=== PATIENT | male | born 1945 | race Two or more races ===

== ENCOUNTER 2019-07-27 13:58 | Emergency (ER) | payer OTHER ==
[~2019-07-27] VITALS: Ht 160 cm; Wt 93.4 kg
--- NOTE | 2019-07-27 14:04 | NUR ---
PT JOYCE C/O +N/V, BLACK STOOL X 3 TODAY. PT AAOX4, VSS, BREATHING EVEN AND UNLABORED ON ROOM AIR, CONNECTED TO THE MONITOR. AT BEDSIDE Addendum: 07/27/19 at 1934 by JANET MAXI
--- NOTE | 2019-07-27 14:26 | NUR ---
BLOOD DRAWN AND SENT TO LAB
--- NOTE | 2019-07-27 14:43 | NUR ---
EKG AT BEDSIDE
[2019-07-27 14:46] LABS: BASOPHILS % (AUTO) 0.2 % (0.0-2.0); EOSINOPHILS % (AUTO) 0.1 % (0.0-6.0); HEMATOCRIT 36 % (39-51); HEMOGLOBIN 11.8 g/dL (13.5-17.5); LYMPHOCYTES # (AUTO) 1.8 /CMM (0.8-4.8); LYMPHOCYTES % (AUTO) 13.9 % (20.0-44.0); MEAN CORPUSCULAR HGB CONC 33 g/dl (31.0-36.0); MEAN CORPUSCULAR VOLUME 96 fL (80-96); MONOCYTES # (AUTO) 0.5 /CMM (0.1-1.30); MONOCYTES % (AUTO) 3.6 % (2.0-12.0); NEUTROPHILS # (AUTO) 10.9 /CMM (1.8-8.9); NEUTROPHILS % (AUTO) 82.2 % (43.0-81.0); PLATELET COUNT (AUTO) 206 /CMM (150-450); RED BLOOD CELL COUNT(AUTO) 3.77 MIL/uL (4.5-6.0); WHITE BLOOD COUNT (AUTO) 13.3 K/uL (4.3-11.0)
[2019-07-27 14:51] LABS: CALCIUM, SERUM 9.7 mg/dL (8.5-10.1); CARBON DIOXIDE 24 mmol/L (21-32); CHLORIDE 108 mmol/L (98-107); CREATININE 1.4 mg/dL (0.6-1.3); GLUCOSE 165 mg/dL (74-106); POTASSIUM 4.6 mmol/L (3.5-5.1); SODIUM SERUM 142 mmol/L (136-145); UREA NITROGEN, BLOOD 42 mg/dL (7-18)
[2019-07-27 14:57] LABS: ALANINE AMINOTRANSFERASE 41 U/L (12-78); ALBUMIN 3.4 g/dL (3.4-5.0); ALKALINE PHOSPHATASE 78 U/L (46-116); ASPARTATE AMINOTRANSFERASE 18 U/L (15-37); BILIRUBIN,DIRECT 0.2 mg/dL (0.0-0.2); BILIRUBIN,TOTAL 0.8 mg/dL (0.2-1.0)
[2019-07-27] MEDS ORDERED: ATOR10TA PO (15:29)
[2019-07-27] MEDS ORDERED: AMLO10TA7 PO (15:29)
[2019-07-27] MEDS ORDERED: ASCO500T9 PO (15:29)
[2019-07-27] MEDS ORDERED: ASPI-1152 PO (15:29)
[2019-07-27] MEDS ORDERED: CHOL100044 PO (15:29)
[2019-07-27] MEDS ORDERED: MONT10TA22 PO (15:29)
[2019-07-27] MEDS ORDERED: OMEG1CAP55 PO (15:29)
[2019-07-27] MEDS ORDERED: MULT-447 PO (15:29)
[2019-07-27] MEDS ORDERED: ONDANSETRON HCL/PF 4 MG/2 ML VIAL ONE (15:48)
[2019-07-27] MEDS ORDERED: ONDANSETRON HCL/PF - ER 4 MG/2 ML VIAL IV ONE (16:00)
--- NOTE | 2019-07-27 16:35 | NUR ---
NURSING SUP AWARE OF [facility] BED REQUEST
--- NOTE | 2019-07-27 18:33 | NUR ---
PER RILEY JOLLY PT ACCEPTED AT [facility], MORE INFO TO FOLLOW
[2019-07-27 18:37] LABS: BASOPHILS % (AUTO) 0.3 % (0.0-2.0); HEMATOCRIT 35 % (39-51); HEMOGLOBIN 11.3 g/dL (13.5-17.5); LYMPHOCYTES # (AUTO) 1.3 /CMM (0.8-4.8); MEAN CORPUSCULAR HGB CONC 33 g/dl (31.0-36.0); MEAN CORPUSCULAR VOLUME 97 fL (80-96); MONOCYTES # (AUTO) 0.7 /CMM (0.1-1.30); MONOCYTES % (AUTO) 5.6 % (2.0-12.0); NEUTROPHILS # (AUTO) 10.2 /CMM (1.8-8.9); NEUTROPHILS % (AUTO) 83.1 % (43.0-81.0); PLATELET COUNT (AUTO) 198 /CMM (150-450); RED BLOOD CELL COUNT(AUTO) 3.57 MIL/uL (4.5-6.0); WHITE BLOOD COUNT (AUTO) 12.3 K/uL (4.3-11.0)
--- NOTE | 2019-07-27 19:38 | NUR ---
CALLED SAMPLER FIRST FOR UPDATE, LEFT VOICEMAIL.
--- NOTE | 2019-07-27 19:51 | NUR ---
ACCEPTED AT [facility] [address] CALL [phone] FOR REPORT. WILL C/B W/ ETA FOR AMBULANCE TRANSPORT.
--- NOTE | 2019-07-27 20:07 | NUR ---
2100 ETA [facility]
--- NOTE | 2019-07-27 20:54 | NUR ---
pt is refusing to be transferred to [facility]. hosp. window caser from [facility] made aware. awaiting ofr their call back.
[2019-07-27 21:08] VITALS: BP 124/73
--- NOTE | 2019-07-27 21:10 | NUR ---
report givebn to EMT from [facility] ambulance
--- NOTE | 2019-07-27 21:14 | NUR ---
report given to serg at [facility]
--- NOTE | 2019-07-27 21:24 | NUR ---
pt agreed and was transferred to [facility] via [facility]/ [place] [facility] in stable condition. all belongings picked up by the pt
== END 2019-07-27 21:28 | disposition short-term general hospital (02) ==
LOC: ER 14:00
DX: K92.2 Gastrointestinal hemorrhage, unspecified (principal); D64.9 Anemia, unspecified; I10 Essential (primary) hypertension; E78.5 Hyperlipidemia, unspecified; K21.9 Gastro-esophageal reflux disease without esophagitis; Z90.49 Acquired absence of other specified parts of digestive tract; Z98.890 Other specified postprocedural states; Z79.82 Long term (current) use of aspirin; Z79.899 Other long term (current) drug therapy
CPT/HCPCS: 36415; 80048; 80076; 85025 ×2; 85730; 86850; 93005; 96374; 99285; J2405 ×2